=== PATIENT | female | born 1975 | race Caucasian/White ===

== ENCOUNTER 2017-05-21 16:49 | Emergency (ER) | payer OTHER ==
[2017-05-21 16:53] VITALS: BP 148/67; PULSE 102; TEMP 98.6
--- NOTE | 2017-05-21 17:26 | PDOC ---
History of Present Illness - General Chief Complaint: Vaginal Bleeding Stated Complaint: VAGINAL BLEEDING/6wks preg Time Seen by Provider: 05/21/17 17:09 History Source: Patient, Family (sister) Exam Limitations: No Limitations - History of Present Illness Travel History: No Initial Comments: 05/21/17 17:23 42 yr female with c/o lower bad pain back pain and spotting started at 2pm. Pt states LMP 04/09/17 positive home test. Pt denies fever chills neg nvd. Pt followed at clinic at [address] [place] [address] has apt tomorrow. 05/21/17 17:42 Past History - Past Medical History Allergies/Adverse Reactions: Allergies Allergy/AdvReac Type Severity Reaction Status Date / Time No Known Allergies Allergy Verified 05/21/17 16:53 Home Medications: Ambulatory Orders NK [No Known Home Medication] 05/21/17 Other medical history: denies - Reproductive History Is Patient Now?: Yes (#): 4 Para: 3 Cervical CA: No Dysfunctional Uterine Bleeding: No Ectopic : No Endometrial CA: No Endometriosis: No Ovarian CA: No PID: No Polycystic Ovaries: No Therapeutic (s) & number: No - Suicide/Smoking/Psychosocial Hx Smoking History: Never smoked Information on smoking cessation initiated: No Hx Alcohol Use: No Drug/Substance Use Hx: No Substance Use Type: None Abd/GI Specific PMHX - Complaint Specific PMHX Colitis: No Diverticulitis: No Gall Bladder Disease: No GERD: No Hepatitis: No Irritable Bowel Synd (IBS): No Pancreatitis: No GI Ulcer Disease: No Review of Systems - Review of Systems Able to Perform ROS?: Yes Is the patient limited Montenegrin proficient: Yes Constitutional: No: Symptoms Reported HEENTM: No: Symptoms Reported Respiratory: No: Symptoms reported Cardiac (ROS): No: Symptoms Reported ABD/GI: No: Symptoms Reported : Yes: See HPI Musculoskeletal: No: Symptoms Reported Integumentary: No: Symptoms Reported Neurological: No: Symptoms reported *Physical Exam - Vital Signs Last Vital Signs Temp Pulse Resp BP Pulse Ox 98.6 F 102 H 18 148/67 99 05/21/17 16:52 05/21/17 16:52 05/21/17 16:52 05/21/17 16:52 05/21/17 16:52 - Physical Exam General Appearance: Yes: Nourished, Appropriately Dressed HEENT: positive: EOMI, [place] Neck: negative: Tender Respiratory/Chest: positive: Lungs Clear, Normal Breath Sounds Cardiovascular: positive: Regular Rhythm, Regular Rate Female Pelvic Exam: positive: normal external exam, cervical os closed, normal adnexa, discharge (yellow green ). negative: CMT, adnexal tenderness, vaginal bleeding Gastrointestinal/Abdominal: positive: Normal Bowel Sounds, Soft Musculoskeletal: positive: Normal Inspection Extremity: positive: Normal Capillary Refill, Normal Inspection, Normal Range of Motion Integumentary: positive: Normal Color, Dry, Warm Neurologic: positive: Fully Oriented, Alert, Normal Mood/Affect, Normal Response , Motor Strength 12/30 ED Treatment Course - LABORATORY CBC & Chemistry Diagram: 05/21/17 17:30 05/21/17 17:30 - RADIOLOGY Radiology Studies Ordered: Category Date Time Status TRANSVAGINAL US PREG [US] Stat Ultrasound 05/21/17 17:22 Ordered Medical Decision Making - Medical Decision Making 05/21/17 17:25 cc: back pain lower abd pain with spotting started today while at home at rest pt denies fever or chills will r/o ectopic, miscarriage, IUP 05/21/17 17:36 05/21/17 18:45 Pt in US results pending pt has follow up appt scheduled for tomorrow at the clinic on Av05/21/17 18:47 pt endorsed to SERVICE TECHNICIAN Lucero Beckman for pending US and dispo. 05/22/17 12:49 *DC/Admit/Observation/Transfer Diagnosis at time of Disposition: at early stage - Discharge Dispostion Disposition: HOME - Patient Instructions Printed Discharge Instructions: Managing Symptoms of , DI for Vaginal Bleeding During Additional Instructions: As discussed, please keep your appointment with your OBGYN tomorrow. You will need a repeat blood test in 2 days for further evaluation of your as it is too early to see on the ultrasound if the baby is developing normally. If you develop severe bleeding (more than one soaked pad an hour), fever, or any new or worsening symptoms, please return to the ER. Gonzalez se discuti, por favor mantnganse con [facility] OBG[facility] maana. Necesitar repetir la prueba de erica en 2 ayala para florina evaluacin adicional de lafleur embarazo porque ya es demasiado pronto para galina en el ultrasonido si el beb se est desarrollando normalmente. Si desarrolla sangrado darvin (ms de florina almohadilla empapada por hora), fiebre o cualquier sntoma nuevo o que empeora, por favor regrese a la sisi de emergencias. Print Language: MAORI
[2017-05-21 17:42] LABS: MCH 29.2 pg (25.7-33.7); MCHC 33.2 g/dl (32.0-36.0); MEAN CELL VOLUME 87.8 fl (80-96); MEAN PLT VOLUME 10.4 fl (7.5-11.1); PLATELET COUNT 217 K/MM3 (134-434); WHITE BLOOD COUNT 15.6 K/mm3 (4.0-10.0)
[2017-05-21 18:04] LABS: URINE APPEARANCE SLCLOUDY; URINE BILIRUBIN NEGATIVE (NEGATIVE); URINE BLOOD 2+ (NEGATIVE); URINE COLOR LTYELLOW; URINE GLUCOSE (UA) NEGATIVE (NEGATIVE); URINE KETONE NEGATIVE (NEGATIVE); URINE NITRITE NEGATIVE (NEGATIVE); URINE PROTEIN NEGATIVE (NEGATIVE); URINE UROBILINOGEN NEGATIVE mg/dL (0.2-1.0)
[2017-05-21 18:11] LABS: ALBUMIN 3.6 g/dl (3.4-5.0); ANION GAP 7 (8-16); BILIRUBIN,TOTAL 0.7 mg/dL (0.2-1.0); CO2 27 mmol/L (21-32); CREATININE 0.7 mg/dL (0.55-1.02); GLUCOSE,RANDOM 115 mg/dL (74-106); SGOT/AST 17 U/L (15-37); SGPT/ALT 36 U/L (12-78); TOT PROT 7.6 g/dl (6.4-8.2)
[2017-05-21 18:13] LABS: ALK PHOS 84 U/L (45-117)
[2017-05-21 18:14] LABS: URINE LEUK ESTERASE 1+ (NEGATIVE)
[2017-05-21 18:16] LABS: URINE BACTERIA RARE /hpf (NONE SEEN); URINE MUCUS RARE; URINE RBC 1 /hpf (0-3); URINE WBC 2 /hpf (3-5)
--- NOTE | 2017-05-21 20:51 | PDOC ---
*Physical Exam - Vital Signs Last Vital Signs Temp Pulse Resp BP Pulse Ox 98.6 F 102 H 18 148/67 99 05/21/17 16:52 05/21/17 16:52 05/21/17 16:52 05/21/17 16:52 05/21/17 16:52 - Physical Exam Comments: 05/21/17 19:30 Sign-out received from outgoing ER provider Kyle. Pt interviewed and examined. Ancillary studies reviewed. T&S O+, no indication for Rhogam. Awaiting US results. 05/21/17 20:49 US results show IUP with yolk sac, EGA 5 wks 2 days. No pole at this time ; may be too early to visualize. 2 cm cyst in R ovary. No free fluid in pelvis. Advised patient to keep appointment with OBGYN and to repeat bloodwork in 2 days for further evaluation of . Advised patient of signs and symptoms for return to ER; patient verbalized understanding and agrees to plan. ED Treatment Course - LABORATORY CBC & Chemistry Diagram: 05/21/17 17:30 05/21/17 17:30 - ADDITIONAL ORDERS Additional order review: Laboratory Results 05/21/17 05/21/17 05/21/17 17:48 17:30 17:30 Sodium 139 Potassium 3.7 Chloride 105 Carbon Dioxide 27 Anion Gap 7 L BUN 10 Creatinine 0.7 Creat Clearance w eGFR > 60 Random Glucose 115 H Calcium 9.0 Total Bilirubin 0.7 AST 17 ALT 36 Alkaline Phosphatase 84 Total Protein 7.6 Albumin 3.6 Beta HCG, Quant 807.5 Urine Color Ltyellow Urine Appearance Slcloudy Urine pH 6.0 Urine Protein Negative Urine Glucose (UA) Negative Urine Ketones Negative Urine Blood 2+ H Urine Nitrite Negative Urine Bilirubin Negative Urine Urobilinogen Negative Urine RBC 1 Urine WBC 2 Ur Epithelial Cells Few Urine Bacteria Rare Urine Mucus Rare Blood Type O POSITIVE Antibody Screen Negative 05/21/17 17:30 RBC 4.69 MCV 87.8 MCHC 33.2 RDW 14.0 MPV 10.4 *DC/Admit/Observation/Transfer Diagnosis at time of Disposition: at early stage - Discharge Dispostion Disposition: HOME Condition at time of disposition: Stable Admit: No - Patient Instructions Printed Discharge Instructions: Managing Symptoms of , DI for Vaginal Bleeding During Additional Instructions: As discussed, please keep your appointment with your OBGYN tomorrow. You will need a repeat blood test in 2 days for further evaluation of your as it is too early to see on the ultrasound if the baby is developing normally. If you develop severe bleeding (more than one soaked pad an hour), fever, or any new or worsening symptoms, please return to the ER. [place] se discuti, por favor mantnganse con [facility] O[facility] maana. Necesitar repetir la prueba de erica en 2 ayala para florina evaluacin adicional de lafleur embarazo porque ya es demasiado pronto para galina en el ultrasonido si el beb se est desarrollando normalmente. Si desarrolla sangrado darvin (ms de florina almohadilla empapada por hora), fiebre o cualquier sntoma nuevo o que empeora, por favor regrese a la sisi de emergencias. Print Language: MICRONESIAN
== END 2017-05-21 21:13 | disposition home or self-care (01) ==
LOC: JER 16:49
DX: O26.891 Other specified pregnancy related conditions, first trimester (principal); R10.30 Lower abdominal pain, unspecified; O34.81 Maternal care for other abnormalities of pelvic organs, first trimester; N83.291 Other ovarian cyst, right side; Z3A.01 Less than 8 weeks gestation of pregnancy
CPT/HCPCS: 36415; 76817-TC; 80053; 81003; 81015; 84702; 85027; 86850; 86900; 86901; 87491; 87591; 99284-25

== ENCOUNTER 2017-05-25 10:20 | Emergency (ER) | payer OTHER ==
[2017-05-25 10:26] VITALS: TEMP 99; BMI 28.8
--- NOTE | 2017-05-25 11:35 | PDOC ---
History of Present Illness - General History Source: Patient Exam Limitations: No Limitations - History of Present Illness Initial Comments: 05/25/17 11:59 The patient is a 42 year old female who is 5 weeks , with no significant PMH who presents to the emergency department with vaginal bleeding beginning yesterday and subjective fever and headache beginning this morning. The patient notes that she was using the bathroom yesterday and noticed streaks of blood when wiping, but she denies hematuria or pad use. She reports going to [facility] on Monday for vaginal bleeding and was told to visit the ED if it got worse. However, the patient denies worsening of the bleeding but reports waking up this morning with subjective fever and associated chills and dizziness, The patient also reports a slight abdominal pain localized in the umbilical area with no radiation, throbbing in nature and 5/10 in severity. She also notes novel erythema and rash on the face which also began this morning. The patient denies chest pain and shortness of breath. Denies vomit, diarrhea and constipation. Denies dysuria, frequency, urgency and hematuria. Allergies: NKA Past surgical history: None reported. Social history: No reported cigarette, alcohol, or drug use. PCP: Dr. Morse <Troy Cooper - Last Filed: 05/25/17 12:19> <Herminia Melendez - Last Filed: 05/25/17 15:35> - General Chief Complaint: Vaginal Bleeding Stated Complaint: BLEEDING, FEVER (5 WKS ) Time Seen by Provider: 05/25/17 10:55 Past History <Troy Cooper - Last Filed: 05/25/17 12:19> - Past Medical History Other medical history: denies - Reproductive History (#): 4 Para: 3 Cervical CA: No Dysfunctional Uterine Bleeding: No Ectopic : No Endometrial CA: No Endometriosis: No Ovarian CA: No PID: No Polycystic Ovaries: No Therapeutic (s) & number: No Tubal Ligation: No - Immunization History Immunization Up to Date: Yes - Suicide/Smoking/Psychosocial Hx Smoking History: Never smoked Information on smoking cessation initiated: No Hx Alcohol Use: No Drug/Substance Use Hx: No Substance Use Type: None <Herminia Melendez - Last Filed: 05/25/17 15:35> - Past Medical History Allergies/Adverse Reactions: Allergies Allergy/AdvReac Type Severity Reaction Status Date / Time No Known Allergies Allergy Verified 05/25/17 10:22 Home Medications: Ambulatory Orders NK [No Known Home Medication] 05/21/17 Review of Systems - Review of Systems Able to Perform ROS?: Yes Comments:: 05/25/17 11:38 GENERAL/CONSTITUTIONAL: (+) Subjective fever. (+) Chills. No weakness. HEAD, EYES, EARS, NOSE AND THROAT: No change in vision. No ear pain or discharge. No sore throat. CARDIOVASCULAR: No chest pain or shortness of breath. RESPIRATORY: No cough, wheezing, or hemoptysis. GASTROINTESTINAL: (+) Mild abdominal pain. No vomiting, diarrhea or constipation. GENITOURINARY: (+) Vaginal bleeding. No dysuria, frequency, or change in urination. MUSCULOSKELETAL: No joint or muscle swelling or pain. No neck or back pain. SKIN: (+) Erythema and rash on face. NEUROLOGIC: (+) Headache. No vertigo, loss of consciousness, or change in strength. ENDOCRINE: No increased thirst. No abnormal weight change. HEMATOLOGIC/LYMPHATIC: No anemia, easy bleeding, or history of blood clots. ALLERGIC/IMMUNOLOGIC: No hives. <Troy Cooper - Last Filed: 05/25/17 12:19> *Physical Exam - Vital Signs Last Vital Signs Temp Pulse Resp BP Pulse Ox 99.0 F 88 18 145/59 100 05/25/17 10:23 05/25/17 10:23 05/25/17 10:23 05/25/17 10:23 05/25/17 10:23 - Physical Exam Comments: 05/25/17 12:19 GENERAL: Awake, alert, and fully oriented, in no acute distress HEAD: No signs of trauma EYES: PERRLA, EOMI, sclera anicteric, conjunctiva clear ENT: Auricles normal inspection, hearing grossly normal, nares patent, oropharynx clear without exudates. Moist mucosa NECK: Normal ROM, supple, no lymphadenopathy, JVD, or masses LUNGS: Breath sounds equal, clear to auscultation bilaterally. No wheezes, and no crackles HEART: Regular rate and rhythm, normal S1 and S2, no murmurs, rubs or gallops ABDOMEN: Soft, nontender, normoactive bowel sounds. No guarding, no rebound. No masses PELVIC: (+) Small amount of blood in vaginal vault. No clots or active bleeding. No CMT adnexal tenderness. EXTREMITIES: Normal range of motion, no edema. No clubbing or cyanosis. No cords, erythema, or tenderness NEUROLOGICAL: Cranial nerves II through XII grossly intact. Normal speech, normal gait SKIN: Warm, Dry, normal turgor, no rashes or lesions noted. <Troy Cooper - Last Filed: 05/25/17 12:19> - Vital Signs Last Vital Signs Temp Pulse Resp BP Pulse Ox 99.0 F 88 18 145/59 100 05/25/17 10:23 05/25/17 10:23 05/25/17 10:23 05/25/17 10:23 05/25/17 10:23 <Herminia Melendez - Last Filed: 05/25/17 15:35> ED Treatment Course - LABORATORY CBC & Chemistry Diagram: 05/25/17 13:07 <Herminia Melendez - Last Filed: 05/25/17 15:35> Medical Decision Making - Medical Decision Making 05/25/17 15:23 Patient presents to the ED complaining of vaginal bleeding. Seen in the ED on Monday with transvaginal Us that showed yolk sac without pole. Repeat BHCG and Us are unchanged. Os is closed without active bleeding. will discharge home with referral to ob. Patient has been instructed that her is unlikely to be viable and will return for worsening bleeding or pain. <Herminia Melendez - Last Filed: 05/25/17 15:35> *DC/Admit/Observation/Transfer - Attestations Scribe Attestion: 05/25/17 12:20 Documentation prepared by Troy Cooper, acting as medical imaging technologist for Herminia Melendez MD. <Troy Cooper - Last Filed: 05/25/17 12:19> - Discharge Dispostion Admit: No <Herminia Melendez - Last Filed: 05/25/17 15:35> Diagnosis at time of Disposition: Threatened - Discharge Dispostion Disposition: HOME Condition at time of disposition: Good - Referrals Referrals: Odette Morse MD [Primary Care Provider] - - Patient Instructions Printed Discharge Instructions: DI for Threatened Additional Instructions: return to the ED for severe pain, severe bleeding, passing out, shortness of breath. Follow up with your OB./
[2017-05-25 13:22] LABS: BASOPHIL 0.4 % (0-2.0); EOSINOPHIL 0.6 % (0-4.5); MCHC 33.1 g/dl (32.0-36.0); MEAN CELL VOLUME 87.7 fl (80-96); MEAN PLT VOLUME 10.3 fl (7.5-11.1); NEUTROPHILS 75.2 % (42.8-82.8); PLATELET COUNT 199 K/MM3 (134-434); RDW 13.4 % (11.6-15.6); WHITE BLOOD COUNT 14.1 K/mm3 (4.0-10.0)
[2017-05-25 13:28] LABS: URINE APPEARANCE CLEAR; URINE BILIRUBIN NEGATIVE (NEGATIVE); URINE BLOOD 3+ (NEGATIVE); URINE COLOR STRAW; URINE GLUCOSE (UA) NEGATIVE (NEGATIVE); URINE KETONE NEGATIVE (NEGATIVE); URINE LEUK ESTERASE NEGATIVE (NEGATIVE); URINE NITRITE NEGATIVE (NEGATIVE); URINE PROTEIN NEGATIVE (NEGATIVE); URINE UROBILINOGEN NEGATIVE mg/dL (0.2-1.0)
[2017-05-25 16:02] VITALS: BP 136/66; PULSE 78
[2017-05-25 16:04] LABS: ALBUMIN 3.9 g/dl (3.4-5.0); ALK PHOS 90 U/L (45-117); ANION GAP 10 (8-16); CALCIUM 8.9 mg/dL (8.5-10.1); CO2 25 mmol/L (21-32); CREATININE 0.7 mg/dL (0.55-1.02); GLUCOSE,RANDOM 118 mg/dL (74-106); SGOT/AST 19 U/L (15-37); SGPT/ALT 37 U/L (12-78); TOT PROT 7.9 g/dl (6.4-8.2)
== END 2017-05-25 15:59 | disposition home or self-care (01) ==
LOC: JER 10:20
DX: O26.891 Other specified pregnancy related conditions, first trimester (principal); Z3A.01 Less than 8 weeks gestation of pregnancy; O20.0 Threatened abortion
CPT/HCPCS: 36415; 76817-TC; 80053; 81003; 81015; 84702; 85025; 99283-25

== ENCOUNTER 2017-07-23 17:45 | Emergency (ER) | payer OTHER ==
[2017-07-23 18:01] VITALS: TEMP 98.5; BMI 27.3
[2017-07-23] MEDS ORDERED: ASPIRIN 81 MG CHEWABLE TABLETS PO ONE (18:05)
--- NOTE | 2017-07-23 18:05 | PDOC ---
History of Present Illness - General History Source: Patient Exam Limitations: No Limitations <Troy Gomes - Last Filed: 07/23/17 19:16> <Maritza Gonzalez - Last Filed: 07/23/17 22:51> - General Chief Complaint: Chest Pain Stated Complaint: CHEST PAIN Time Seen by Provider: 07/23/17 18:04 - History of Present Illness Initial Comments: 07/23/17 19:16 The patient is a 42 year old female presenting with her family, with no significant past medical history, who presents to the emergency department with chest pain and shortness of breath since his morning. She describes her chest pain as a pressure like sensation, ranging from mild to moderate, with radiation to her left arm and back. She notes that lifting her arm and taking deep breaths exacerbates her pain. She notes that she also feels weakness of her left arm. She states that she had chest pain 4 days ago and last week, both times resolving soon after. She denies taking any medication for the pain. She notes that she has a cough for the past 2 days that is non productive. The patient works as a warehouse team leader. The patient denies headache and dizziness. Denies fever, chills, nausea, vomit, diarrhea and constipation. Denies dysuria, frequency, urgency and hematuria. Allergies: None Past surgical history: None reported Social history: No alcohol, tobacco or drug use reported (Troy Gomes) Past History <Troy Gomes - Last Filed: 07/23/17 19:16> - Past Medical History COPD: No DVT: No - Reproductive History (#): 4 Para: 3 Cervical CA: No Dysfunctional Uterine Bleeding: No Ectopic : No Endometrial CA: No Endometriosis: No Ovarian CA: No PID: No Polycystic Ovaries: No Therapeutic (s) & number: No Tubal Ligation: No - Immunization History Immunization Up to Date: Yes - Suicide/Smoking/Psychosocial Hx Smoking History: Never smoked Have you smoked in the past 12 months: No Information on smoking cessation initiated: No Hx Alcohol Use: No Drug/Substance Use Hx: No Substance Use Type: None <Maritza Gonzalez - Last Filed: 07/23/17 22:51> - Past Medical History Allergies/Adverse Reactions: Allergies Allergy/AdvReac Type Severity Reaction Status Date / Time No Known Allergies Allergy Verified 07/23/17 21:38 Home Medications: Ambulatory Orders NK [No Known Home Medication] 07/23/17 Cardiac Specific PMH - Complaint Specific PMHX GERD: No <Maritza Gonzalez - Last Filed: 07/23/17 22:51> Review of Systems - Review of Systems Able to Perform ROS?: Yes <Troy Gomes - Last Filed: 07/23/17 19:16> <Maritza Gonzalez - Last Filed: 07/23/17 22:51> - Review of Systems Comments:: 07/23/17 19:17 GENERAL/CONSTITUTIONAL: No fever or chills. No weakness. HEAD, EYES, EARS, NOSE AND THROAT: No change in vision. No ear pain or discharge. No sore throat.- CARDIOVASCULAR: (+) chest pain and shortness of breath RESPIRATORY: (+) Cough. No wheezing, or hemoptysis. GASTROINTESTINAL: No nausea, vomiting, diarrhea or constipation. GENITOURINARY: No dysuria, frequency, or change in urination. MUSCULOSKELETAL: No joint or muscle swelling or pain. No neck or back pain. SKIN: No rash NEUROLOGIC: No headache, vertigo, loss of consciousness, or change in strength/ sensation. ENDOCRINE: No increased thirst. No abnormal weight change HEMATOLOGIC/LYMPHATIC: No anemia, easy bleeding, or history of blood clots. ALLERGIC/IMMUNOLOGIC: No hives or skin allergy. (Troy Gomes) *Physical Exam <Troy Gomes - Last Filed: 07/23/17 19:16> <Maritza Gonzalez - Last Filed: 07/23/17 22:51> - Vital Signs Last Vital Signs Temp Pulse Resp BP Pulse Ox 98.5 F 86 20 148/80 98 07/23/17 17:57 07/23/17 21:38 07/23/17 21:38 07/23/17 21:38 07/23/17 21:38 - Physical Exam Comments: 07/23/17 19:18 GENERAL: Awake, alert, and fully oriented, in no acute distress HEAD: No signs of trauma, normocephalic, atraumatic EYES: PERRLA, EOMI, sclera anicteric, conjunctiva clear ENT: Auricles normal inspection, hearing grossly normal, nares patent, oropharynx clear without exudates. Moist mucosa NECK: Normal ROM, supple, no lymphadenopathy, JVD, or masses LUNGS: No distress, speaks full sentences, clear to auscultation bilaterally HEART: Regular rate and rhythm, normal S1 and S2, no murmurs, rubs or gallops, peripheral pulses normal and equal bilaterally. ABDOMEN: Soft, nontender, normoactive bowel sounds. No guarding, no rebound. No masses EXTREMITIES : Normal inspection, Normal range of motion, no edema. No clubbing or cyanosis. NEUROLOGICAL: Cranial nerves II through XII grossly intact. Normal speech, normal gait, no focal sensorimotor deficits SKIN: Warm, Dry, normal turgor, no rashes or lesions noted. (Troy Gomes) ED Treatment Course - LABORATORY CBC & Chemistry Diagram: 07/23/17 18:15 07/23/17 18:15 <Troy Gomes - Last Filed: 07/23/17 19:16> - LABORATORY CBC & Chemistry Diagram: 07/23/17 18:15 07/23/17 18:15 <Maritza Gonzalez - Last Filed: 07/23/17 22:51> - ADDITIONAL ORDERS Additional order review: Laboratory Results 07/23/17 07/23/17 07/23/17 18:33 18:15 18:15 PT with INR 12.00 H INR 1.06 Sodium 140 Potassium 3.4 L Chloride 107 Carbon Dioxide 27 Anion Gap 6 L BUN 12 Creatinine 0.7 Creat Clearance w eGFR > 60 Random Glucose 142 H D Calcium 8.4 L Magnesium 2.1 Total Bilirubin 0.8 AST 14 L D ALT 40 Alkaline Phosphatase 101 Creatine Kinase 134 Troponin I < 0.02 Total Protein 7.7 Albumin 3.7 Urine HCG, Qual Negative 07/23/17 18:15 RBC 4.64 MCV 87.6 MCHC 34.0 RDW 13.4 MPV 9.9 Neutrophils % 67.5 Lymphocytes % 24.2 Monocytes % 3.9 Eosinophils % 3.8 D Basophils % 0.6 - RADIOLOGY Radiology Studies Ordered: Category Date Time Status CHEST X-RAY PORTABLE* [RAD] Stat Radiology 07/23/17 18:06 Taken - Medications Given in the ED: ED Medications Discontinued Medications Generic Name Dose Route Start Last Admin Trade Name Freq PRN Reason Stop Dose Admin Aspirin 162 mg 07/23/17 18:05 07/23/17 18:27 Asa - PO 07/23/17 18:06 162 mg ONCE ONE Administration Ibuprofen 600 mg 07/23/17 21:02 07/23/17 21:08 Motrin - PO 07/23/17 21:03 600 mg ONCE ONE Administration Potassium Chloride 20 meq 07/23/17 19:32 07/23/17 19:37 K-Dur - PO 07/23/17 19:33 20 meq ONCE ONE Administration *DC/Admit/Observation/Transfer <Troy Gomes - Last Filed: 07/23/17 19:16> <Maritza Gonzalez - Last Filed: 07/23/17 22:51> Diagnosis at time of Disposition: Hyperglycemia Chest pain Qualifiers: Chest pain type: unspecified Qualified Code(s): R07.9 - Chest pain, unspecified - Discharge Dispostion Disposition: HOME Condition at time of disposition: Stable - Referrals Referrals: Odette Morse MD [Primary Care Provider] - Mathieu Parrish MD [Staff Physician] - - Patient Instructions Printed Discharge Instructions: DI for Hyperglycemia -- Adult, DI for Chest Pain Additional Instructions: PLEASE SEE YOUR DOCTOR TO HAVE FURTHER TESTING OF YOUR HIGH BLOOD SUGAR WHICH WAS ELEVATED TO 142 PLEASE RETURN TO THE EMERGENCY DEPARTMENT FOR ANY WORSENING SYMPTOMS ASK FOR CARDIOLOGY REFERRAL FOR AN ECHO - Attestations Scribe Attestion: 07/23/17 19:18 Documentation prepared by Troy Gomes, acting as medical assisting program director for Maritza Gonzalez MD (Troy Gomes)
[2017-07-23] MEDS ORDERED: ASPIRIN 81 MG CHEWABLE TABLETS ONE (18:18)
[2017-07-23 18:30] LABS: BASOPHIL 0.6 % (0-2.0); EOSINOPHIL 3.8 % (0-4.5); MCH 29.8 pg (25.7-33.7); MEAN CELL VOLUME 87.6 fl (80-96); MEAN PLT VOLUME 9.9 fl (7.5-11.1); NEUTROPHILS 67.5 % (42.8-82.8); PLATELET COUNT 215 K/MM3 (134-434); RDW 13.4 % (11.6-15.6); WHITE BLOOD COUNT 10.8 K/mm3 (4.0-10.0)
[2017-07-23 18:38] LABS: INR 1.06 (0.82-1.09)
[2017-07-23 18:57] LABS: ALBUMIN 3.7 g/dl (3.4-5.0); ANION GAP 6 (8-16); CALCIUM 8.4 mg/dL (8.5-10.1); CO2 27 mmol/L (21-32); CREATININE 0.7 mg/dL (0.55-1.02); GLUCOSE,RANDOM 142 mg/dL (74-106); MAGNESIUM 2.1 mg/dL (1.8-2.4); SGOT/AST 14 U/L (15-37); SGPT/ALT 40 U/L (12-78)
[2017-07-23 19:01] LABS: ALK PHOS 101 U/L (45-117); BILIRUBIN,TOTAL 0.8 mg/dL (0.2-1.0); CPK 134 IU/L (26-192); TOT PROT 7.7 g/dl (6.4-8.2); TROPONIN I < 0.02 ng/ml (0.00-0.05)
[2017-07-23] MEDS ORDERED: POTASSIUM CHLORIDE TABS 20 MEQ TABLET.ER (FP) PO ONE ×2 (19:32→19:35)
[2017-07-23] MEDS ORDERED: IBUPROFEN 600 MG TABLET (FP) PO ONE ×2 (21:02→21:05)
[2017-07-23 21:38] VITALS: BP 148/80; PULSE 86
--- NOTE | 2017-07-24 14:03 | EKG ---
Test Reason : Blood Pressure : / mmHG Vent. Rate : 091 BPM Atrial Rate : 091 BPM P-R Int : 140 ms QRS Dur : 078 ms QT Int : 354 ms P-R-T Axes : 043 -07 021 degrees QTc Int : 435 ms NORMAL SINUS RHYTHM NORMAL ECG NO PREVIOUS ECGS AVAILABLE Confirmed by ALEX SUE MD ([id number]) on 07/24/2017 2:03:36 PM Referred By: Confirmed By:ALEX SUE MD
== END 2017-07-23 22:58 | disposition home or self-care (01) ==
LOC: JER 17:45
DX: R73.9 Hyperglycemia, unspecified (principal); E87.6 Hypokalemia
CPT/HCPCS: 36415; 71010-TC; 80053; 82550; 83735; 84484; 84703; 85025; 85610; 93005; 93010; 99285-25

== ENCOUNTER 2021-07-24 17:04 | Emergency (ER) | payer OTHER ==
[2021-07-24 17:33] VITALS: BP 164/83; PULSE 99; TEMP 98.1; BMI 31.2
[2021-07-24] MEDS ORDERED: KETOROLAC TROMETHAMINE 30 MG/1 ML VIAL IVPUSH ONE (17:55)
[2021-07-24] MEDS ORDERED: KETOROLAC TROMETHAMINE 30 MG/1 ML VIAL ONE (18:07)
[2021-07-24 18:18] LABS: BASO % 0.7 % (0-2.0); EOS % 1.8 % (0-4.5); HEMATOCRIT 39.9 % (32.4-45.2); HEMOGLOBIN 13.6 GM/dL (10.7-15.3); LYMPH % 27.1 % (8-40); MCH 29.8 pg (25.7-33.7); MCHC 34.1 g/dl (32.0-36.0); MEAN CELL VOLUME 87.2 fl (80-96); MEAN PLT VOLUME 9.4 fl (7.5-11.1); NEUT % 65.4 % (42.8-82.8); PLATELET COUNT 190 10^3/uL (134-434); RBC 4.57 M/mm3 (3.60-5.2); RDW 13.2 % (11.6-15.6); WHITE BLOOD COUNT 15.7 K/mm3 (4.0-10.0)
[2021-07-24 18:22] LABS: EPI CELLS 6 /uL (0-25.1); HCG,QUALITATIVE URINE Negative; HYALINE CASTS 0 /uL (0-3.1); PH,URINE 6.5 (5.0-8.0); URINE APPEARANCE CLEAR; URINE BACTERIA 107 /uL (0-1359); URINE BILIRUBIN NEGATIVE (NEGATIVE); URINE COLOR YELLOW; URINE GLUCOSE (UA) NEGATIVE (NEGATIVE); URINE KETONE NEGATIVE (NEGATIVE); URINE LEUK ESTERASE NEGATIVE (NEGATIVE); URINE NITRITE NEGATIVE (NEGATIVE); URINE PROTEIN NEGATIVE (NEGATIVE); URINE RBC 34 /uL (0-23.9); URINE UROBILINOGEN 0.2 mg/dL (0.2-1.0); URINE WBC 3 /uL (0-25.8)
[2021-07-24 18:35] LABS: ALBUMIN 3.5 g/dl (3.4-5.0); CALCIUM 8.9 mg/dL (8.5-10.1)
[2021-07-24 18:36] LABS: BLOOD UREA NITROGEN 17.7 mg/dL (7-18)
[2021-07-24 18:38] LABS: CREATININE 1.1 mg/dL (0.55-1.3)
[2021-07-24 18:40] LABS: BILIRUBIN,TOTAL 0.6 mg/dL (0.2-1); TOT PROT 7.9 g/dl (6.4-8.2)
[2021-07-25] MEDS ORDERED: KETOROLAC TROMETHAMINE 15 MG/ML VIAL IM ONE (04:35)
[2021-07-25] MEDS ORDERED: ACETAMINOPHEN 500 MG TABLET (FP) PO ONE (04:35)
[2021-07-25] MEDS ORDERED: ACETAMINOPHEN 325 MG TABLET (FP) ONE (04:40)
[2021-07-25] MEDS ORDERED: KETOROLAC TROMETHAMINE 30 MG/1 ML VIAL ONE (04:40)
== END 2021-07-25 05:05 | disposition home or self-care (01) ==
LOC: JER 17:04
PROC: 3E0333Z Introduction of Anti-inflammatory into Peripheral Vein, Percutaneous Approach (ICD-10-PCS; principal; 2021-07-24)
PROC: 3E0333Z Introduction of Anti-inflammatory into Peripheral Vein, Percutaneous Approach (ICD-10-PCS; 2021-07-25)
DX: N83.209 Unspecified ovarian cyst, unspecified side (principal); R10.30 Lower abdominal pain, unspecified
CPT/HCPCS: 36415; 74177-TC; 76830-TC; 76856-TC; 80053; 81003; 83690; 84703; 85025; 87086; 99285-25; Q9967

== ENCOUNTER 2022-12-11 13:52 | Emergency (ER) | payer OTHER ==
[2022-12-11 13:58] VITALS: BP 160/76; PULSE 91; RESP 18; TEMP 98.3; BMI 31.2
== END 2022-12-11 15:03 | disposition home or self-care (01) ==
LOC: JER 13:52
DX: L03.115 Cellulitis of right lower limb (principal)
CPT/HCPCS: 99282-25